=== PATIENT | female | born 1940 | race Caucasian/White ===

== ENCOUNTER 2024-01-04 06:49 | Emergency (ER) | payer OTHER, SELFPAY ==
[2024-01-04 06:50] VITALS: BP 160/98
--- NOTE | 2024-01-04 07:09 | ED.GENMED ---
History of Present Illness
General
Chief Complaint: Change in Mental Status
Source: patient and other (friend)
Exam Limitations: none
Time Seen by Provider: 01/04/24 06:59
Nursing documentation reviewed up to this point in time: agreed with
History of Present Illness
History of Present Illness:
Patient presents to ED, accompanied by neighbor/friend, secondary to intermittent confusion noted over the past 1 week. Per friend, patient who lives alone, has expressed irrational thoughts over the past 1 week. For example, patient has been
complaining of her body not being where needs to be and unable to define keys to her house. In fact this morning, patient was noted to try to enter her neighbor's house. Per patient, she went over to her neighbor's house, because she could not
remember the code for garage door. Patient denies headache. Denies recent illness. Denies loss of appetite. Patient herself has no complaints. Patient and friend, patient does live in the community with other elderly population, where there is
from time to time alcohol consumption. However, patient does not drink excessively. Friend is concerned that perhaps patient is experiencing urinary tract infection.
Review of Systems
Review of Systems
Allergies reviewed?: Yes
All Other Systems: ROS reviewed and negative except as documented in HPI and ROS
Constitutional: Reports no symptoms; Denies fever
Respiratory: Reports no symptoms
Cardiac: Reports no symptoms
ABD/GI: Reports no symptoms; Denies nausea, vomiting or diarrhea
Musculoskeletal: Reports no symptoms
Skin: Reports no symptoms
Neurological: Reports other (Confusion); Denies headache
Phy Exam
Physical Exam
Physical Exam:
Physical Exam
General: no apparent distress, not acutely ill. afebrile
Head: nc/at. eomi
Neck: supple. no meningeal signs.
Heart: s1/s2 regular rate and rhythm, no murmur. equal radial pulses.
Lungs: no acute respiratory distress. clear bilaterally
Abdomen: normal bowel sounds. not tender.
Neuro: alert and oriented. no focal neurological deficits. normal speech.
Skin: no rash
Psychiatric: well kept. interactive and cooperative
Extremities: no edema. no calf tenderness
Course
Orders/Labs/Results
Orders:
Orders
01/04/24 07:08
CT Head W/o Iv Contrast Urgent
Comment:
Reason For Exam: mental status change
01/04/24 07:16
Alcohol Urgent
Complete Blood Count/With Diff Urgent
Comprehensive Metabolic Panel Urgent
Magnesium Urgent
TSH Urgent
Urinalysis Reflex To Culture Urgent
Date Specimen was Collected: 01/04/24
Time Specimen was Collected: 07:15
Vitamin B12 Urgent
01/04/24 08:00
0.9% Sodium Chloride 500 ml [Nss] 500 ml IV BOLUS
01/04/24 08:04
Speech Screening from [facility] Routine
Abnormal Lab Results
01/04/24
07:16
WBC 4.4 L 10^3/uL
(4.8-10.8)
RBC 4.00 L 10^6/uL
(4.20-5.40)
Hct 36.7 L %
(37.0-47.0)
MCH 31.3 H pg
(27.0-31.0)
Absolute Lymphs (auto) 0.9 L 10^3/uL
(1.2-3.4)
Lymphocytes % 19.1 L %
(20.5-51.1)
01/04/24 07:16
01/04/24 07:16
Vital Signs
Initial and Last Documented VS:
Initial Vital Signs
Temp Pulse Resp BP Pulse Ox
98.0 F 76 16 160/98 100
01/04/24 06:50 01/04/24 06:50 01/04/24 06:50 01/04/24 06:50 01/04/24 06:50
Last Documented Vital Signs
Temp Pulse Resp BP Pulse Ox
98.0 F 75 18 160/95 100
01/04/24 06:50 01/04/24 10:27 01/04/24 10:27 01/04/24 10:27 01/04/24 10:27
MDM/Problems Addressed
MDM/Problems Addressed:
Patient with an unremarkable workup in ED, including blood work, EKG, and urinalysis. History and exam consistent with likely mild dehydration versus early dementia versus less likely TIA. Patient advised to increase fluid intake at home, along
with urgent follow-up outpatient with her primary care physician for further evaluation. Patient otherwise is afebrile, hemodynamically stable, and neurologically intact, at time of discharge to the care of her friend, who will assist the patient
in following up with her primary care physician.
*Critical Care Note
Total Time (30-74mins, 75-104mins- exclusive of procedures): Not Applicable
ED Attending Note
-
Portions of this chart may have been created with voice recognition software.� Occasional wrong word or��sound alike� substitutions may have occurred due to the inherent limitations of voice recognition software.
Discharge Plan
Departure
Patient Disposition: Home (Routine Discharge)
Date of Disposition: 01/04/24
Time of Disposition: 10:18
Patient with high blood pressure during this ER visit?: Yes
Discharge Problem:
Change in mental status
Instructions: Altered Mental Status (DC)
Referrals:
Justin Tracy DO [Family Provider] -
Activity Restrictions/Additional Instructions:
As discussed, please follow-up with your primary care physician for further evaluation and treatment.
Interventions
Interventions:
*Risk Screen - Suicide Last Done: 01/04/24 07:05
*General Assessment Last Done: 01/04/24 06:50
*Neglect/Abuse Screening Last Done: 01/04/24 07:05
ED- Fall Risk Assessment Last Done: 01/04/24 10:28
*ED COVID-19 Vaccine History Last Done: 01/04/24 06:50
*Nursing Disposition Last Done: 01/04/24 10:28
ED- Pulmonary Assessment Last Done: 01/04/24 10:28
ED-Psychological Assessment Last Done: 01/04/24 10:28
ED- Neurological Assessment Last Done: 01/04/24 07:05
ED- Cardiac Assessment Last Done: 01/04/24 10:28
ED Swallowing Screen Last Done: 01/04/24 08:04
Discharge Date and Time
Discharge Date/Time: 01/04/24 10:27
Print Language: AMERICAN
[2024-01-04 07:27] LABS: % Basophils 0.2 % (0-2); % Immature Granulocytes 0.2 % (0-0.5); % Lymphocytes 19.1 % (20.5-51.1); % Monocytes 7.9 % (1.7-9.3); % Neutrophils 70.6 % (42.2-75.2); Absolute Eosinophils 0.1 10^3/uL (0-0.7); Absolute Lymphocytes 0.9 10^3/uL (1.2-3.4); Absolute Monocytes 0.4 10^3/uL (0.1-0.6); Absolute Neutrophils 3.1 10^3/uL (1.4-6.5); Hematocrit 36.7 % (37.0-47.0); Hemoglobin 12.5 g/dL (12.0-16.0); Mean Corp Hgb Conc. 34.1 g/dL (33.0-37.0); Mean Corpuscular Hgb 31.3 pg (27.0-31.0); Mean Corpuscular Volume 91.8 fL (81.0-99.0); Mean Platelet Volume 8.5 fL (7.4-10.4); Nucleated Red Blood Cells % 0 %; Platelet Count 251 10^3/uL (130-400); Red Cell Dist. Width 13.6 % (11.5-14.5); White Blood Cell Count 4.4 10^3/uL (4.8-10.8)
[2024-01-04 07:48] LABS: ALT (SGPT) 14 U/L (0-35); AST (SGOT) 26 U/L (14-36); Albumin 4.2 g/dl (3.5-5.0); Alcohol None Detected; Alkaline Phosphatase 89 U/L (38-126); Blood Urea Nitrogen 12 mg/dl (7-17); Calcium 9.3 mg/dl (8.4-10.2); Carbon Dioxide 28 mmol/L (22-30); Chloride 101 mmol/L (98-107); Glucose 99 mg/dl (70-99); Magnesium 2.1 mg/dl (1.6-2.3); Potassium 4.4 mmol/L (3.5-5.1); Sodium 136 mmol/L (135-145); Total Bilirubin 0.6 mg/dl (0.2-1.3); Total Protein 6.6 g/dl (6.3-8.2); eGFR > 60.00
[2024-01-04 08:07] LABS: TSH 2.73 uIU/ml (0.47-4.68)
[2024-01-04] MEDS: NSS 500 IV (08:08)
[2024-01-04 08:26] LABS: Vitamin B12 561 pg/ml (239-931)
[2024-01-04 08:55] LABS: Urine Albumin Negative (Neg - Trace); Urine Bilirubin Negative (Negative); Urine Character Clear (Clear); Urine Color Straw; Urine Glucose Negative (Negative); Urine Ketone Negative (Negative); Urine Leukocyte Negative (Negative); Urine Nitrite Negative (Negative); Urine Occult Blood Negative (Negative); Urine Urobilinogen Negative (Neg - 1+)
[2024-01-04 10:27] VITALS: BP 160/95
== END 2024-01-04 10:27 | disposition home or self-care (01) ==
LOC: EMR 06:49
PROVIDERS: EMERGENCY PHYSICIAN Emergency Medicine; FAMILY PHYSICIAN Family Medicine
DX: R41.82 Altered mental status, unspecified (principal); R03.0 Elevated blood-pressure reading, without diagnosis of hypertension; Z96.642 Presence of left artificial hip joint; Z85.828 Personal history of other malignant neoplasm of skin; Z88.1 Allergy status to other antibiotic agents
CPT/HCPCS: 99284; 70450; 80053; 81003; 82077; 82607; 83735; 84443; 85025

== ENCOUNTER 2024-01-06 15:13 | Emergency (ER) | payer OTHER, SELFPAY ==
[2024-01-06 15:17] VITALS: BP 179/91
[2024-01-06 15:48] LABS: % Basophils 0.5 % (0-2); % Immature Granulocytes 0.3 % (0-0.5); % Lymphocytes 24.3 % (20.5-51.1); % Monocytes 8.4 % (1.7-9.3); % Neutrophils 64.5 % (42.2-75.2); Absolute Eosinophils 0.1 10^3/uL (0-0.7); Absolute Lymphocytes 1.5 10^3/uL (1.2-3.4); Absolute Monocytes 0.5 10^3/uL (0.1-0.6); Absolute Neutrophils 3.8 10^3/uL (1.4-6.5); Hematocrit 37.3 % (37.0-47.0); Hemoglobin 12.9 g/dL (12.0-16.0); Mean Corp Hgb Conc. 34.6 g/dL (33.0-37.0); Mean Corpuscular Hgb 31.4 pg (27.0-31.0); Mean Corpuscular Volume 90.8 fL (81.0-99.0); Mean Platelet Volume 8.7 fL (7.4-10.4); Nucleated Red Blood Cells % 0 %; Platelet Count 317 10^3/uL (130-400); Red Blood Cell Count 4.11 10^6/uL (4.20-5.40); Red Cell Dist. Width 13.6 % (11.5-14.5)
[2024-01-06 16:02] LABS: ALT (SGPT) 14 U/L (0-35); AST (SGOT) 25 U/L (14-36); Albumin 4.5 g/dl (3.5-5.0); Alkaline Phosphatase 99 U/L (38-126); Blood Urea Nitrogen 23 mg/dl (7-17); Calcium 9.2 mg/dl (8.4-10.2); Carbon Dioxide 25 mmol/L (22-30); Chloride 101 mmol/L (98-107); Glucose 99 mg/dl (70-99); Potassium 3.9 mmol/L (3.5-5.1); Sodium 136 mmol/L (135-145); Total Bilirubin 0.5 mg/dl (0.2-1.3); eGFR > 60.00
[2024-01-06 18:54] VITALS: BMI 23.5
[2024-01-06 19:03] VITALS: BP 160/88
[2024-01-06 21:00] VITALS: BP 173/85
--- NOTE | 2024-01-06 21:30 | ED.GENMED ---
History of Present Illness
General
Chief Complaint: Change in Mental Status
Source: patient
Exam Limitations: none
Time Seen by Provider: 01/06/24 18:57
Nursing documentation reviewed up to this point in time: agreed with
History of Present Illness
History of Present Illness:
83-year-old female without significant past medical history was recently here 2 days ago as well for similar symptoms of some degree of confusion she is accompanied by her friend. Here she is fully alert and oriented. She does say some random
things that do not make sense in the context of the conversation but otherwise is directable. Denies any chest pain shortness of breath or any medical symptoms at this time
Review of Systems
Review of Systems
Allergies reviewed?: Yes
All Other Systems: ROS reviewed and negative except as documented in HPI and ROS
Phy Exam
Physical Exam
Physical Exam:
GENERAL: Alert , in no apparent distress
EYE: pupils equal and reactive
NECK: Supple, no significant adenopathy.
ENT: o/p clr, mmm.
CARDIAC: Regular rate and rhythm .
LUNGS: Clear breath sounds bilaterally, no acute respiratory distress, no wheezes/rales/rhonchi
ABDOMEN: Soft, without focal tenderness, no r/g, no cvat
NEUROLOGICAL: Alert and oriented, no focal neuro deficits
SKIN: Warm and dry, skin intact.
MUSCULOSKELETAL: No edema, well perfused.
PSYCH: Normal and appropriate interaction.
Course
Orders/Labs/Results
Orders:
Orders
01/06/24 15:34
Complete Blood Count/With Diff Urgent
Comprehensive Metabolic Panel Urgent
01/06/24 18:57
EKG [Electrocardiogram (*1)] Urgent
Reason for Study: Fatigue / Weakness
EKG- Treatment ONCE
01/06/24 19:34
Crisis Consult Urgent
Reason for Consult: confusion, no medical cause
Abnormal Lab Results
01/06/24
15:34
RBC 4.11 L 10^6/uL
(4.20-5.40)
MCH 31.4 H pg
(27.0-31.0)
BUN 23 H mg/dl
(7-17)
01/06/24 15:34
01/06/24 15:34
Vital Signs
Initial and Last Documented VS:
Initial Vital Signs
Temp Pulse Resp BP Pulse Ox
98.2 F 93 18 179/91 97
01/06/24 15:17 01/06/24 15:17 01/06/24 15:17 01/06/24 15:17 01/06/24 15:17
Last Documented Vital Signs
Temp Pulse Resp BP Pulse Ox
98.2 F 81 18 173/85 97
01/06/24 15:17 01/06/24 21:00 01/06/24 21:00 01/06/24 21:00 01/06/24 21:00
MDM/Problems Addressed
MDM/Problems Addressed:
83-year-old female presenting to the emergency department today with concerns of confusion. Similar symptoms 2 days ago seen by crisis here has set up outpatient care with psych and primary care. Here patient was hypertensive but improving to the
160s over 80s she was notified of this and will follow-up closely for reassessment of this and potential starting blood pressure medications as needed. She had a recent head CT 2 days ago which was normal. Urinalysis which was normal 2 days ago
labs unremarkable today has slight elevation of BUN with advised to drink more fluids which she was able to tolerate no without issue here. EKG normal patient otherwise stable for discharge and was given strict return precautions was discharged
with her friend that we will keep an eye on her as well.
*Critical Care Note
Total Time (30-74mins, 75-104mins- exclusive of procedures): Not Applicable
ED Attending Note
-
Portions of this chart may have been created with voice recognition software.� Occasional wrong word or��sound alike� substitutions may have occurred due to the inherent limitations of voice recognition software.
Discharge Plan
Departure
Patient Disposition: Home (Routine Discharge)
Date of Disposition: 01/06/24
Time of Disposition: 21:31
Patient with high blood pressure during this ER visit?: No
Condition: Good
Covid-19: Not Applicable
Discharge Problem:
Confusion
Instructions: Altered Mental Status (DC)
Referrals:
Justin Tracy DO [Family Provider] -
Activity Restrictions/Additional Instructions:
You came to emergency department today with concerns of confusion. Here you had a reassuring assessment. Please follow closely as an outpatient. Immediately return for any worsening, new or concerning symptoms.
Interventions
Interventions:
*Risk Screen - Suicide Last Done: 01/06/24 18:54
*General Assessment Last Done: 01/06/24 18:54
*Neglect/Abuse Screening Last Done: 01/06/24 18:54
ED- Fall Risk Assessment Last Done: 01/06/24 18:54
*ED COVID-19 Vaccine History Last Done: 01/06/24 18:39
*Nursing Disposition Last Done: 01/06/24 21:42
ED- Pulmonary Assessment Last Done: 01/06/24 18:54
ED-Psychological Assessment Last Done: 01/06/24 19:12
ED- Neurological Assessment Last Done: 01/06/24 18:54
ED- Cardiac Assessment Last Done: 01/06/24 21:42
ED Swallowing Screen Last Done: 01/06/24 19:12
Discharge Date and Time
Discharge Date/Time: 01/06/24 21:42
Print Language: FRENCH
== END 2024-01-06 21:42 | disposition home or self-care (01) ==
LOC: EMR 15:13
PROVIDERS: Emergency Medicine; EMERGENCY PHYSICIAN Student in an Organized Health Care Education/Training Program; FAMILY PHYSICIAN Family Medicine
DX: R41.0 Disorientation, unspecified (principal); I10 Essential (primary) hypertension
CPT/HCPCS: 99283; 80053; 85025; 93005